=== PATIENT | male | born 1965 | race Caucasian/White ===

== ENCOUNTER 2023-02-01 13:30 | Outpatient (CLI) | payer BC | END 2023-02-01 13:31 | disposition home or self-care (01) | LOC: LABBT 13:30 | PROVIDERS: ATTEND Orthopaedic Surgery | DX: Z01.818 Encounter for other preprocedural examination (principal); M17.0 Bilateral primary osteoarthritis of knee | CPT/HCPCS: 71046; 80048; 81003; 85025; 85610; 86850; 86900; 86901; 87081; 93005; 93010 ==

== ENCOUNTER 2023-02-06 09:29 | Observation (INO) | payer BC ==
[2023-02-01 14:30] VITALS: BMI 28.3
[2023-02-01 14:42] LABS: Bilirubin Neg (Negative); Blood, Urine 10 (Negative); Clarity Clear (Clear); Glucose, Urine (Dipstick) Normal (Negative); Ketone, Urine Negative (Negative); Leukocyte Negative (Negative); Nitrite Negative (Negative); Protein, Urine (Dipstick) Negative (Neg-Trace); Urobilinogen Normal mg/dL (Less than 2)
[2023-02-01 14:48] LABS: #Basophils 0.1 10x3/uL (0.0-0.2); #Eosinphils 0.3 10x3/uL (0.0-0.5); #Monocytes 0.7 10x3/uL (0.0-1.1); #Neutrophils 4.8 10x3/uL (1.5-8.4); %Basophils 1.2 % (0.0-2.0); %Eosinophils 3.7 % (0.0-6.0); %Lymphocytes 33.5 % (18.0-47.0); %Monocytes 7.4 % (0.0-10.0); %Neutrophils 53.9 % (40.0-75.0); Hematocrit 43.2 % (38.8-50.0); Hemoglobin 14.6 g/dL (13.5-17.5); Mean Corpuscular HGB CONC 33.8 g/dL (32.0-36.0); Mean Corpuscular Hemoglobin 31.5 pg (27.0-33.0); Mean Corpuscular Volume 93.1 fl (81.2-95.1); Mean Platelet Volume 9.2 fl (7.4-10.4); Platelet Count 418 10x3/uL (150-450); RBC Distribution Width 13.1 % (11.5-14.5); Red Blood Cell (RBC) Count 4.64 10x6/uL (4.32-5.72); White Blood Cell (WBC) Count 8.9 10x3/uL (3.5-10.5)
[2023-02-01 14:56] LABS: Prothrombin Time 10.7 sec (9.5-12.1)
[2023-02-01 15:02] LABS: Anion Gap 12 mmol/L (10-20); BUN (Urea Nitrogen) 11 mg/dL (8.4-25.7); Calc. Creatinine Clearance 0 mL/min (70-130); Calcium 9.6 mg/dL (7.8-10.44); Carbon Dioxide 25 mmol/L (22-29); Chloride 107 mmol/L (98-107); Estimated GFR 85; Glucose 95 mg/dL (70-105); Potassium 3.9 mmol/L (3.5-5.1); Sodium 140 mmol/L (136-145)
[2023-02-06] MEDS ORDERED: Sodium Chloride 0.9% 100 ML ONE ×2 (09:44→10:17)
[2023-02-06] MEDS ORDERED: Vancomycin (BATCH) 1.5 GRAM/300 ML BAG ONE (09:44)
[2023-02-06] MEDS ORDERED: Tranexamic Acid 1,000 MG/10 ML VIAL ONE ×2 (09:44→13:30)
[2023-02-06] MEDS ORDERED: Lidocaine 1% (PF) 30 ML VIAL ONE (10:08)
[2023-02-06] MEDS ORDERED: methylPREDNISolone Acetate 40 mg/ml Vial ONE (10:08)
[2023-02-06] MEDS ORDERED: Bupivacaine PF 0.5% 30 ML VIAL ONE (10:08)
[2023-02-06] MEDS ORDERED: fentaNYL PF 100 MCG/2 ML SYRINGE ONE ×2 (10:12→13:30)
[2023-02-06] MEDS ORDERED: Midazolam HCl 2 mg/2 ml Vial ONE (10:12)
[2023-02-06] MEDS ORDERED: CEFAZOLIN 2 GM VIAL ONE (10:17)
[2023-02-06] MEDS ORDERED: ePHEDrine Sulfate 50 MG/10 ML VIAL ONE (10:29)
[2023-02-06] MEDS ORDERED: Dexamethasone 20 MG/5 ML VIAL ONE (10:29)
[2023-02-06] MEDS ORDERED: PROPOFOL 200 MG/20 ML VIAL ONE (10:29)
[2023-02-06] MEDS ORDERED: Bupivacaine HCl 0.5%/Epinephrine 1:200,000/PF 30 ml Vial ONE (10:29)
[2023-02-06] MEDS ORDERED: Ketorolac Tromethamine 30 MG/ML VIAL ONE (10:29)
[2023-02-06] MEDS ORDERED: Ondansetron PF 4 MG/2 ML Vial ONE (10:29)
[2023-02-06] MEDS ORDERED: Ropivacaine 0.5% HCl/PF (150 MG/30 ML VIAL) ONE (10:30)
[2023-02-06] MEDS ORDERED: diphenhydrAMINE 25 MG CAP PO PRN (11:03)
[2023-02-06] MEDS ORDERED: Ondansetron PF 4 MG/2 ML Vial IVP PRN ×2 (11:03→13:15)
[2023-02-06] MEDS ORDERED: fentaNYL 50 mcg/mL 1 mL Vial SLOW IVP PRN ×2 (11:03→13:14)
[2023-02-06] MEDS ORDERED: Zolpidem Tartrate 5 MG TAB PO PRN ×2 (11:03→13:15)
[2023-02-06] MEDS ORDERED: Promethazine HCl 25 MG/ML VIAL IM PRN ×3 (11:03→13:15)
[2023-02-06] MEDS ORDERED: traMADol HCl 50 MG TAB PO PRN (11:03)
[2023-02-06] MEDS ORDERED: HYDROcodone/Acetaminophen 10/325 mg Tablet PO PRN ×2 (11:03)
[2023-02-06] MEDS ORDERED: Tranexamic Acid 1,000 MG in Sodium Chloride 0.9% 100 ML IVPB SCH (11:15)
[2023-02-06] MEDS ORDERED: fentaNYL 50 mcg/mL 1 mL Vial ONE ×3 (11:29→13:16)
[2023-02-06] MEDS ORDERED: Ondansetron HCl/PF 4 MG/2 ML Vial IVP PRN (12:23)
[2023-02-06] MEDS ORDERED: Meperidine HCl/PF 25 MG/ML VIAL SLOW IVP PRN (12:23)
[2023-02-06] MEDS ORDERED: HYDROmorphone 2 MG/ML VIAL SLOW IVP PRN (12:23)
[2023-02-06] MEDS ORDERED: HYDROmorphone 2 MG/ML VIAL ONE (12:59)
[2023-02-06] MEDS ORDERED: Ropivacaine 0.2% 550 ML 550 ML NERVE BLCK SCH (13:15)
[2023-02-06] MEDS: Sodium Chloride 0.9% 1,000 ML IV SCH ×2 (17:36→21:18)
[2023-02-06] MEDS: Ketorolac Tromethamine 30 MG/ML VIAL IVP SCH ×2 (17:37→21:17)
[2023-02-06] MEDS: CEFAZOLIN 2 GM in Sodium Chloride 0.9% 100 ML IVPB SCH (17:38)
[2023-02-06] MEDS: Ferrous Gluconate 324 MG TAB PO SCH (21:17)
[2023-02-06] MEDS: Senokot S 8.6-50 MG TAB PO SCH (21:17)
[2023-02-06] MEDS: Aspirin 81 mg Enteric Coated Tablet PO SCH (21:17)
[2023-02-06] MEDS ORDERED: Vancomycin 1.5 GRAM/300 ML BAG 1.5 GM in Premix Bag 1 BAG IVPB SCH (22:00)
[2023-02-07] MEDS: CEFAZOLIN 2 GM in Sodium Chloride 0.9% 100 ML IVPB SCH (02:06)
[2023-02-07] MEDS: Acetaminophen 325 MG TAB PO PRN ×2 (04:31→10:13)
[2023-02-07] MEDS: Ketorolac Tromethamine 30 MG/ML VIAL IVP SCH (06:17)
[2023-02-07 06:23] LABS: Hematocrit 35.9 % (42.0-52.0); Hemoglobin 12.1 g/dL (14.0-18.0); Mean Corpuscular HGB CONC 33.7 g/dL (32.0-36.0); Mean Corpuscular Hemoglobin 31.9 pg (27.0-31.0); Mean Corpuscular Volume 94.7 fl (78.0-98.0); Mean Platelet Volume 9.2 fL (7.4-10.4); Platelet Count 306 10x3/uL (130-400); Red Blood Cell (RBC) Count 3.79 mill/uL (4.70-6.10); White Blood Cell (WBC) Count 24.1 10x3/uL (4.8-10.8)
[2023-02-07] MEDS: Sodium Chloride 0.9% 1,000 ML IV SCH (07:24)
[2023-02-07] MEDS ORDERED: Tamsulosin HCl 0.4 MG CAP PO SCH (09:00)
[2023-02-07] MEDS ORDERED: Multivitamin W/ Minerals 1 TAB PO SCH (09:00)
[2023-02-07] MEDS: Aspirin 81 mg Enteric Coated Tablet PO SCH (10:13)
[2023-02-07] MEDS: Ferrous Gluconate 324 MG TAB PO SCH (10:13)
[2023-02-07] MEDS: Senokot S 8.6-50 MG TAB PO SCH (10:13)
[2023-02-07] MEDS ORDERED: HYDROcodone/Acetaminophen 10/325 mg Tablet PO SCH (11:15)
[2023-02-07 11:42] VITALS: BP 129/74; TEMP 98.9
[2023-02-07] MEDS ORDERED: HYDROcodone/Acetaminophen 10/325 mg Tablet PO PRN (15:15)
== END 2023-02-07 12:55 | disposition home or self-care (01) ==
LOC: SDC 09:29 → SJJU 14:23
PROVIDERS: ADMIT Orthopaedic Surgery; ATTEND Orthopaedic Surgery
PROC: 0SRC0JZ Replacement of Right Knee Joint with Synthetic Substitute, Open Approach (ICD-10-PCS; principal; 2023-02-07)
PROC: 0S9D30Z Drainage of Left Knee Joint with Drainage Device, Percutaneous Approach (ICD-10-PCS; 2023-02-07)
DX: M17.0 Bilateral primary osteoarthritis of knee (principal); K21.9 Gastro-esophageal reflux disease without esophagitis; Z79.899 Other long term (current) drug therapy
CPT/HCPCS: 36415; 80048; 81003; 85025; 85027; 85610; 86850; 86900; 86901; 87081; A4306; C1776; J1030; J1100; J1170; J1885; J2001; J2250; J2405; J2704; J2795; J3010; J3370; J3490; J7050; S0020